=== PATIENT | male | born 1985 | race African-American/Black ===

== ENCOUNTER 2017-05-20 17:44 | Inpatient (IN) | payer OTHER ==
[~2017-05-20] VITALS: Ht 172.7 cm; Wt 55.6 kg
[~2017-05-20 17:44] MED LIST: FLUT1SPR9 NASAL
[2017-05-20 18:05] VITALS: BP 125/90; PULSE 90; RESP 18; TEMP 98.2; O2SAT 98
[2017-05-20 19:18] LABS: AUTOMATED NEUTROPHIL # 3.3 TH/MM3 (1.8-7.7); BASOPHIL # 0.1 TH/MM3 (0-0.2); BASOPHIL % 0.9 % (0.0-2.0); EOSINOPHIL # 0.2 TH/MM3 (0-0.4); EOSINOPHIL % 3.6 % (0.0-4.0); HEMATOCRIT 45.4 % (39.0-51.0); HEMO FLAGS DIFF FINAL; LYMPH % 36.8 % (9.0-44.0); LYMPHOCYTE # 2.4 TH/MM3 (1.0-4.8); MEAN CELL VOLUME 95.2 FL (80.0-100.0); MEAN CORPUSCULAR HEMOGLOBIN 32.2 PG (27.0-34.0); MEAN CORPUSCULAR HGB CONC 33.8 % (32.0-36.0); MONO % 7.8 % (0.0-8.0); NEUT % 50.9 % (16.0-70.0); PLATELET COUNT 202 TH/MM3 (150-450); RED BLOOD COUNT 4.77 MIL/MM3 (4.50-5.90); RED CELL DISTRIBUTION WIDTH 14.5 % (11.6-17.2); WHITE BLOOD COUNT 6.6 TH/MM3 (4.0-11.0)
[2017-05-20 19:32] LABS: ANION GAP 7 MEQ/L (5-15); BICARBONATE 28.2 MEQ/L (21.0-32.0); BLOOD UREA NITROGEN 16 MG/DL (7-18); CHLORIDE 105 MEQ/L (98-107); GLOMERULAR FILTRATION RATE 74 ML/MIN (>89); POTASSIUM 3.8 MEQ/L (3.5-5.1); SODIUM (NA) 140 MEQ/L (136-145)
[2017-05-20 19:33] LABS: ALT (GPT) 22 U/L (12-78); AST (GOT) 20 U/L (15-37)
[2017-05-20 19:35] LABS: ALKALINE PHOSPHATASE 97 U/L (45-117); TOTAL BILIRUBIN ADULT 1.1 MG/DL (0.2-1.0)
[2017-05-20 19:37] LABS: ALCOHOL LESS THAN 3 MG/DL (0-5)
[2017-05-20 19:41] LABS: ACETAMINOPHEN LESS THAN 2.0 MCG/ML (10.0-30.0)
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
[2017-05-20 21:27] VITALS: BP 116/77; PULSE 78; RESP 18; O2SAT 99
[2017-05-21 06:36] VITALS: BP 98/52; PULSE 73; RESP 16; O2SAT 99
[2017-05-21 10:45] VITALS: BP 114/69; PULSE 79; RESP 12
[2017-05-21 18:16] VITALS: BP 113/75; PULSE 67; RESP 16; O2SAT 98
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
[2017-05-21 22:01] VITALS: BP 111/59; PULSE 72; RESP 18; O2SAT 97
[2017-05-22 02:00] VITALS: BP 95/58; PULSE 70; PULSE 98; RESP 17; O2SAT 70; O2SAT 98
[2017-05-22 06:10] VITALS: BP 102/56; PULSE 71; RESP 18; O2SAT 98
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
[2017-05-22] MEDS ORDERED: LORazepam 1 MG TAB PO PRN (12:30)
[2017-05-22] MEDS ORDERED: diphenhydrAMINE HCL 50 MG CAP PO PRN (12:30)
[2017-05-22] MEDS ORDERED: ALUMINUM/MAGNESIUM/SIMETH 30 ML CUP PO PRN (12:30)
[2017-05-22] MEDS ORDERED: diphenhydrAMINE HCL 50 MG/ML VIAL IM PRN (12:30)
[2017-05-22] MEDS ORDERED: MAGNESIUM HYDROXIDE SUSP 30 ML CUP PO PRN (12:30)
[2017-05-22] MEDS ORDERED: LORazepam 2 MG/ML VIAL IM PRN (12:30)
[2017-05-22] MEDS ORDERED: ACETAMINOPHEN 325 MG TAB PO PRN (12:30)
[2017-05-22] MEDS ORDERED: HALOPERIDOL LACTATE 5 MG/ML AMP ONE (14:32)
[2017-05-22] MEDS ORDERED: LORazepam 2 MG/ML VIAL IM STA (15:04)
[2017-05-22] MEDS ORDERED: HALOPERIDOL LACTATE 5 MG/ML AMP IM ONE (15:15)
[2017-05-23 10:48] LABS: AUTOMATED NEUTROPHIL # 2.5 TH/MM3 (1.8-7.7); BASOPHIL % 0.8 % (0.0-2.0); EOSINOPHIL # 0.1 TH/MM3 (0-0.4); EOSINOPHIL % 2.7 % (0.0-4.0); HEMATOCRIT 44.4 % (39.0-51.0); HEMO FLAGS DIFF FINAL; LYMPH % 33.7 % (9.0-44.0); LYMPHOCYTE # 1.5 TH/MM3 (1.0-4.8); MEAN CELL VOLUME 95.3 FL (80.0-100.0); MEAN CORPUSCULAR HEMOGLOBIN 32.4 PG (27.0-34.0); MONO % 8.1 % (0.0-8.0); NEUT % 54.7 % (16.0-70.0); PLATELET COUNT 207 TH/MM3 (150-450); RED BLOOD COUNT 4.66 MIL/MM3 (4.50-5.90); RED CELL DISTRIBUTION WIDTH 14.6 % (11.6-17.2); WHITE BLOOD COUNT 4.6 TH/MM3 (4.0-11.0)
[2017-05-23 10:57] LABS: ANION GAP 8 MEQ/L (5-15); AST (GOT) 25 U/L (15-37); BICARBONATE 26.9 MEQ/L (21.0-32.0); BLOOD UREA NITROGEN 16 MG/DL (7-18); CHLORIDE 100 MEQ/L (98-107); GLOMERULAR FILTRATION RATE 75 ML/MIN (>89); POTASSIUM 3.6 MEQ/L (3.5-5.1); SODIUM (NA) 135 MEQ/L (136-145)
[2017-05-23 11:25] LABS: ALKALINE PHOSPHATASE 83 U/L (45-117); ALT (GPT) 20 U/L (12-78); HDL CHOLESTEROL 36.4 MG/DL (40.0-60.0); LDL CHOLESTEROL 74 MG/DL (0-99); TOTAL BILIRUBIN ADULT 1.7 MG/DL (0.2-1.0)
[2017-05-23] MEDS ORDERED: diphenhydrAMINE HCL 50 MG/ML VIAL IM PRN (12:00)
[2017-05-23] MEDS ORDERED: LORazepam 1 MG TAB PO PRN (12:00)
[2017-05-23] MEDS ORDERED: LORazepam 2 MG/ML VIAL IM PRN (12:00)
--- NOTE | 2017-05-23 14:01 | EKG ---
Date Performed: 05/23/2017 Time Performed: 08:11:35 PTAGE: 31 years EKG: Sinus rhythm BORDERLINE RIGHT AXIS DEVIATION ST ELEVATION CONSISTENT WITH INJURY, PERICARDITIS, OR EARLY REPOLARI ZATION ST DEVIATION AND MODERATE T-WAVE ABNORMALITY, CONSIDER ANTEROLATERAL ISCHEMIA ABNORMAL ECG NO PREVIOUS TRACING There is notable ST elevation, particularly in leads V3 and V4, but a lso in leads V5 and V6 with considered acute anterior myocardial injury. Clinical correlation is requ ired. DOCTOR: Tono Pratt Interpretating Date/Time 05/23/2017 14:00:48
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
[2017-05-23 16:22] VITALS: BP 111/61; PULSE 76; RESP 18; TEMP 98.5; O2SAT 97
[2017-05-23 17:03] LABS: HEMOGLOBIN A1b 1.7 %; HEMOGLOBIN Ao 85.6 %; HEMOGLOBIN LA1C 2.3 %; HEMOGLOBIN P3 3.6 %
--- NOTE | 2017-05-23 17:18 | HHI.PYPN ---
Subjective Remarks NOTE FOR 05/23/17 SAVED ON 05/24/17 - PLEASE REFER TO THAT NOTE. NEW NOTE WAS STARTED BY ERROR. Mental Status Examination Appearance: Appropriate Consciousness: Alert Orientation: Person, Place Motor Activity: Normal gait Speech: Rapid Language: Adequate Fund of Knowledge: Poor Attention and Concentration: Other (fair) Memory: Impaired Mood: Angry, Irritable Affect: Other (slight increase intensity decreased range) Thought Process & Associations: Loose associations, Tangential Thought Content: Bizarre thinking Hallucination Type: None (denies) Delusion Type: Paranoid Suicidal Ideation: No Suicidal Plan: No Suicidal Intention: No Homicidal Ideation: No Homicidal Plan: No Homicidal Intention: No Insight: Poor Judgment: Poor Results Labs Test 05/23/17 08:29 White Blood Count 4.6 TH/MM3 Red Blood Count 4.66 MIL/MM3 Hemoglobin 15.1 GM/DL Hematocrit 44.4 % Mean Corpuscular Volume 95.3 FL Mean Corpuscular Hemoglobin 32.4 PG Mean Corpuscular Hemoglobin Concent 34.0 % Red Cell Distribution Width 14.6 % Platelet Count 207 TH/MM3 Mean Platelet Volume 10.7 FL Neutrophils (%) (Auto) 54.7 % Lymphocytes (%) (Auto) 33.7 % Monocytes (%) (Auto) 8.1 % Eosinophils (%) (Auto) 2.7 % Basophils (%) (Auto) 0.8 % Neutrophils # (Auto) 2.5 TH/MM3 Lymphocytes # (Auto) 1.5 TH/MM3 Monocytes # (Auto) 0.4 TH/MM3 Eosinophils # (Auto) 0.1 TH/MM3 Basophils # (Auto) 0.0 TH/MM3 CBC Comment DIFF FINAL Differential Comment Blood Urea Nitrogen 16 MG/DL Creatinine 1.35 MG/DL Random Glucose 140 MG/DL Total Protein 6.5 GM/DL Albumin 3.6 GM/DL Calcium Level 9.1 MG/DL Alkaline Phosphatase 83 U/L Aspartate Amino Transf (AST/SGOT) 25 U/L Alanine Aminotransferase (ALT/SGPT) 20 U/L Total Bilirubin 1.7 MG/DL Sodium Level 135 MEQ/L Potassium Level 3.6 MEQ/L Chloride Level 100 MEQ/L Carbon Dioxide Level 26.9 MEQ/L Anion Gap 8 MEQ/L Estimat Glomerular Filtration Rate 75 ML/MIN Triglycerides Level 81 MG/DL Cholesterol Level 127 MG/DL LDL Cholesterol 74 MG/DL HDL Cholesterol 36.4 MG/DL Cholesterol/HDL Ratio 3.48 RATIO Vitamin B12 Level 408 PG/ML 25-Hydroxy Vitamin D Total 26.7 ng/ML Thyroid Stimulating Hormone 3rd Gen 0.796 uIU/ML Vitals/IOs Vital Signs Date Time Temp Pulse Resp B/P (MAP) Pulse Ox O2 Delivery O2 Flow Rate FiO2 05/23/17 16:22 98.5 76 18 111/61 (78) 97 05/22/17 06:10 Room Air Assessment & Plan Problem List: (1) Brief psychotic disorder ICD Codes: F23 - Brief psychotic disorder Assessment & Plan Estimated LOS: days Justification for Cont. Inpt. At risk for further decompensation if at lower level of care. Ilir Dasilva MD May 23, 2017 17:18
[2017-05-23] MEDS: OLANZapine 5 MG TAB PO SCH (21:00)
[2017-05-23] MEDS: diphenhydrAMINE HCL 50 MG CAP PO PRN (22:52)
[2017-05-24 05:42] VITALS: BP 97/60; PULSE 64; RESP 18; TEMP 97.6; O2SAT 98
[2017-05-24] MEDS: OLANZapine 5 MG TAB PO SCH (08:10)
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
[2017-05-24 17:03] VITALS: BP 104/60; PULSE 95; RESP 18; TEMP 98.8; O2SAT 100
--- NOTE | 2017-05-24 17:04 | HHI.PYPN ---
Subjective Remarks Patient seen for follow-up, chart reviewed. Patient found lying on hospital bed , irritable and superficially cooperative with interview. Discussion with nursing staff, patient guarded with taking medication, ate well, has not been aggressive. Patient questions why his mother is is trying to kill him..."use her senority" and states that he will likely return back to live with her. He reports sleeping well, eating and drinking well. Chief Complaint: Aggressivness toward mother, paranoid and persecutory delusions Review of Systems Except as stated in HPI: all other systems reviewed are Neg Mental Status Examination Appearance: Appropriate Consciousness: Alert Orientation: Person, Place Motor Activity: Normal gait Language: Adequate Fund of Knowledge: Poor Attention and Concentration: Other (fair) Memory: Impaired Mood: Irritable Affect: Irritable Thought Process & Associations: Linear Thought Content: Bizarre thinking, Other (perseverative on persecutary/ paranoid delusion) Hallucination Type: None (denies) Delusion Type: Paranoid, Other (persecutory delusions) Suicidal Ideation: No Suicidal Plan: No Suicidal Intention: No Homicidal Ideation: No Homicidal Plan: No Homicidal Intention: No Insight: Poor Judgment: Poor Results Vitals/IOs Vital Signs Date Time Temp Pulse Resp B/P (MAP) Pulse Ox O2 Delivery O2 Flow Rate FiO2 05/24/17 17:03 98.8 95 18 104/60 (75) 100 05/22/17 06:10 Room Air Assessment & Plan Problem List: (1) Brief psychotic disorder ICD Codes: F23 - Brief psychotic disorder Assessment & Plan Patient continues to endorse paranoid and persecutory delusions of his mother trying to kill him. Will increase olanzapine to 10mg AM/15mg PO HS for psychosis. Discharge planning in progress. Justification for Cont. Inpt. At risk for further decompensation if at lower level of care. Discharge Planning Patient to return back to mother's home once stable. Ilir Dasilva MD May 24, 2017 17:04
[2017-05-24] MEDS: OLANZapine 10 MG TAB PO SCH (20:09)
[2017-05-25 05:42] VITALS: BP 112/65; PULSE 80; RESP 16; TEMP 97.2; O2SAT 98
[2017-05-25] MEDS: OLANZapine 5 MG TAB PO SCH (08:14)
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
[2017-05-25 17:43] VITALS: BP 143/63; PULSE 89; RESP 17; TEMP 98.5; O2SAT 99
[2017-05-25] MEDS: OLANZapine 10 MG TAB PO SCH (20:22)
[2017-05-26 06:00] VITALS: BP 116/62; PULSE 72; RESP 16; TEMP 97.8; O2SAT 100
[2017-05-26] MEDS: OLANZapine 5 MG TAB PO SCH (07:49)
[2017-05-26 16:39] VITALS: BP 117/82; PULSE 69; RESP 17; TEMP 96.8; O2SAT 96
[2017-05-26] MEDS: OLANZapine 10 MG TAB PO SCH ×2 (20:29→20:48)
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
[2017-05-27 05:51] VITALS: BP 114/70; PULSE 71; RESP 16; TEMP 98.3; O2SAT 97
[2017-05-27] MEDS: OLANZapine 5 MG TAB PO SCH (09:00)
[2017-05-27 15:32] VITALS: BP 115/84; PULSE 88; RESP 18; TEMP 96.9; O2SAT 88
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
[2017-05-27] MEDS: OLANZapine 10 MG TAB PO SCH (20:36)
[2017-05-28 05:47] VITALS: BP 113/81; PULSE 71; RESP 18; TEMP 98.1; O2SAT 97
[2017-05-28] MEDS: OLANZapine 5 MG TAB PO SCH (09:00)
--- NOTE | 2017-05-28 13:46 | HHI.PYPN ---
Subjective Remarks Patient seen for follow-up, chart reviewed. Discussion with nursing staff reported the patient continues to refuse medications stating that it is against his buddhism. Patient had difficulty sleeping last evening. Patient found lying in hospital bed today but was cooperative in interview. Patient states that he does not want to take showers as he feels that it sexual harassment for him to get naked despite having him assured that he will be in the shower alone. Patient states that he is refusing medication because of nondenominational reasons. Patient continues to be noted to have some grandiosity, pressured speech & on his mother attempting to kill him or having him put in the hospital for alternative motives. Patient continues to state that he is planning to erna the hospital for $99 trillion for every day he spends away from his business. Chief Complaint: Aggressivness toward mother, paranoid and persecutory delusions Review of Systems Except as stated in HPI: all other systems reviewed are Neg Mental Status Examination Appearance: Appropriate Consciousness: Alert Orientation: Person, Place, Date/Time Motor Activity: Normal gait Speech: Pressured Language: Adequate Fund of Knowledge: Poor Attention and Concentration: Other (fair) Memory: Impaired Mood: Irritable Affect: Irritable Thought Process & Associations: Linear Thought Content: Bizarre thinking, Other (perseverative on persecutary/ paranoid delusion) Hallucination Type: None (denies) Delusion Type: Paranoid, Other (persecutory delusions) Suicidal Ideation: No Suicidal Plan: No Suicidal Intention: No Homicidal Ideation: No Homicidal Plan: No Homicidal Intention: No Insight: Poor Judgment: Poor Results Vitals/IOs Vital Signs Date Time Temp Pulse Resp B/P (MAP) Pulse Ox O2 Delivery O2 Flow Rate FiO2 05/28/17 05:47 98.1 71 18 113/81 (04) 97 Assessment & Plan Problem List: (1) Brief psychotic disorder ICD Codes: F23 - Brief psychotic disorder Assessment & Plan Patient continues to refuse medications and will likely need to present to mental health court for treatment over objection due to his continued symptoms. Patient will also be presented the [place] for retention. Continue to encourage patient to adhere to medication treatment and to maintain hygiene while on the unit. Discharge planning in progress Justification for Cont. Inpt. At risk for further decompensation if at lower level of care Discharge Planning Unclear with the patient may return back to his mother's residence due to his current symptoms but one psychiatrically stable this will begin be explored. Ilir Dasilva MD May 28, 2017 13:46
[2017-05-28 15:37] VITALS: BP 149/63; PULSE 92; RESP 18; TEMP 98.1; O2SAT 97
[2017-05-28] MEDS: OLANZapine 10 MG TAB PO SCH (21:00)
[2017-05-29 06:08] VITALS: BP 99/57; PULSE 73; RESP 17; TEMP 97.8; O2SAT 97
[2017-05-29] MEDS: OLANZapine 5 MG TAB PO SCH (09:00)
--- NOTE | 2017-05-29 15:55 | HHI.PYPN ---
Subjective Remarks Patient seen for follow-up, chart reviewed. Discussion whether she staff stated patient continues to refuse medications. Patient found lying in hospital bed, cooperative interview. Patient continues to be noted to be a perseverative on persecutory paranoid delusion of his mother trying to kill him. Patient also continues to endorse grandiose delusions of having rectal labels, appetite is being companies stating that he is losing "trillions" of dollars with every day he is here in the hospital. Patient also continues to state that he is willing to soon [facility] for having him admitted to the inpatient psychiatric unit involuntarily. Patient reminded that he will be presented to mental health court tomorrow to present petition for involuntary admission as well as treatment over objection. Chief Complaint: Aggressivness toward mother, paranoid and persecutory delusions Review of Systems Except as stated in HPI: all other systems reviewed are Neg Mental Status Examination Appearance: Appropriate Consciousness: Alert Orientation: Person, Place, Date/Time Motor Activity: Normal gait Speech: Pressured Language: Adequate Fund of Knowledge: Poor Attention and Concentration: Other (fair) Memory: Impaired Mood: Irritable Affect: Irritable Thought Process & Associations: Linear, Tangential (at times) Thought Content: Bizarre thinking, Other (perseverative on persecutary/ paranoid delusion) Hallucination Type: None (denies) Delusion Type: Paranoid, Other (persecutory delusions) Suicidal Ideation: No Suicidal Plan: No Suicidal Intention: No Homicidal Ideation: No Homicidal Plan: No Homicidal Intention: No Insight: Poor Judgment: Poor Results Vitals/IOs Vital Signs Date Time Temp Pulse Resp B/P (MAP) Pulse Ox O2 Delivery O2 Flow Rate FiO2 05/29/17 06:08 97.8 73 17 99/57 (11) 97 Assessment & Plan Problem List: (1) Brief psychotic disorder ICD Codes: F23 - Brief psychotic disorder Assessment & Plan Patient continues to refuse medications stated that is against his pentecost[employer] police although continues to be very paranoid surrounding his mother and continue with persecutory delusions as well as grandiose delusions. Patient continues to be at risk for harm to others due to his recent history and access to firearms. Patient will present to mental health court tomorrow for retention as well as treatment over objection. Continue current treatment. Discharge planning in progress Justification for Cont. Inpt. At risk for further decompensation if at lower level of care Discharge Planning Unclear whether patient will be able to return back to mother's residence. Patient continues to require psychiatric stabilization at this time Ilir Dasilva MD May 29, 2017 15:55
[2017-05-29 16:00] VITALS: BP 124/78; PULSE 101; RESP 18; O2SAT 96
[2017-05-29] MEDS: OLANZapine 10 MG TAB PO SCH (20:57)
[2017-05-30 06:10] VITALS: BP 111/60; PULSE 67; RESP 18; TEMP 98; O2SAT 99
[2017-05-30] MEDS: OLANZapine 5 MG TAB PO SCH (09:00)
[2017-05-30] MEDS ORDERED: HALOPERIDOL LACTATE 5 MG/ML AMP IM ONE (10:30)
[2017-05-30] MEDS ORDERED: LORazepam 2 MG/ML VIAL IM ONE (10:30)
[2017-05-30] MEDS ORDERED: OLANZapine IM 10 MG VIAL IM PRN (13:00)
--- NOTE | 2017-05-30 16:53 | HHI.PYPN ---
Subjective Remarks Patient seen for follow-up, chart reviewed. Patient was taken to mental health court for hearing on petition for involuntary admission and request for health care surrogate which recreation therapy aide granted both. Patient was upset with the outcome and attempted to elope and had grabbed an umbrella which patient was noted to be agitated and code maloney was called but patient was able to be de-escalated and brought back to the unit where he was put in the quiet room and given haldol 5mg IM and ativan 2mg IM. Chief Complaint: Aggressivness toward mother, paranoid and persecutory delusions Review of Systems Except as stated in HPI: all other systems reviewed are Neg Mental Status Examination Appearance: Appropriate Consciousness: Alert Orientation: Person, Place, Date/Time Motor Activity: Normal gait Speech: Pressured, Other (yelling using foul language) Language: Adequate Fund of Knowledge: Poor Attention and Concentration: Easily Distracted Memory: Impaired Mood: Angry, Irritable Affect: Irritable, Other (agitated) Thought Process & Associations: Linear, Tangential (at times) Thought Content: Bizarre thinking, Delusional, Other (perseverative on persecutary/paranoid delusion) Hallucination Type: None (denies) Delusion Type: Paranoid, Other (persecutory delusions) Suicidal Ideation: No Suicidal Plan: No Suicidal Intention: No Homicidal Ideation: No Homicidal Plan: No Homicidal Intention: No Insight: Poor Judgment: Poor Results Vitals/IOs Vital Signs Date Time Temp Pulse Resp B/P (MAP) Pulse Ox O2 Delivery O2 Flow Rate FiO2 05/30/17 06:10 98.0 67 18 111/60 (77) 99 Assessment & Plan Problem List: (1) 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 Patient to continue olanzapine 5mg PO BID and if refuses olanzapine 5mg IM BID for psychosis. Continue to monitor mood and behavior. Elopement precautions. Discharge planning in progress. Justification for Cont. Inpt. At risk for further decompensation if at lower level of care. Discharge Planning Unclear if patient can return back to [facility] once psychiatrically stable Ilir Dasilva MD May 30, 2017 16:53
[2017-05-30 18:02] VITALS: BP 104/77; PULSE 103; RESP 18; TEMP 98.1; O2SAT 96
[2017-05-30] MEDS: OLANZapine 10 MG TAB PO SCH (21:32)
[2017-05-31 06:23] VITALS: BP 116/69; PULSE 76; RESP 16; TEMP 97.8; O2SAT 99
[2017-05-31] MEDS: OLANZapine 5 MG TAB PO SCH (08:08)
[2017-05-31] MEDS: NICOTINE 21 MG/24 HR PATCH T-DERMAL SCH (11:00)
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
[2017-05-31 18:12] VITALS: BP 122/88; PULSE 102; RESP 17; O2SAT 98
[2017-05-31] MEDS: diphenhydrAMINE HCL 50 MG CAP PO PRN (20:56)
[2017-05-31] MEDS: OLANZapine 10 MG TAB PO SCH (20:57)
[2017-05-31] MEDS: REMOVE OLD NICODERM (NICOTINE) PATCH T-DERMAL SCH (21:00)
[2017-06-01 06:06] VITALS: BP 101/52; PULSE 83; RESP 16; TEMP 98.3; O2SAT 98
[2017-06-01] MEDS: OLANZapine 5 MG TAB PO SCH (08:44)
[2017-06-01] MEDS: NICOTINE 21 MG/24 HR PATCH T-DERMAL SCH (08:44)
--- NOTE | 2017-06-01 16:04 | HHI.PYPN ---
Subjective Remarks Patient was seen and case discussed with nursing. I had an extended conversation with the patient where he adamantly denies having any mental health history or symptoms. He is perseverative on this being the fault of his mother. He has poor insight into his admission and his behavior here and in his last court meeting. He later becomes angry and threatens to erna everybody for "99 quadrillion dollars." Compliant with medications Chief Complaint: Aggressivness toward mother, paranoid and persecutory delusions Mental Status Examination Appearance: Appropriate Consciousness: Alert Orientation: Person, Place, Date/Time Motor Activity: Normal gait Speech: Pressured Language: Adequate Fund of Knowledge: Poor Attention and Concentration: Adequate Memory: Impaired Mood: Angry Affect: Irritable, Blunt Thought Process & Associations: Tangential (at times) Thought Content: Delusional (continues with paranoid and persecutory) Hallucination Type: None (denies) Delusion Type: Paranoid, Other (persecutory delusions) Suicidal Ideation: No Suicidal Plan: No Suicidal Intention: No Homicidal Ideation: No Homicidal Plan: No Homicidal Intention: No Insight: Poor Judgment: Poor Results Vitals/IOs Vital Signs Date Time Temp Pulse Resp B/P (MAP) Pulse Ox O2 Delivery O2 Flow Rate FiO2 06/01/17 06:06 98.3 83 16 101/52 (68) 98 Assessment & Plan Problem List: (1) Schizoaffective disorder ICD Codes: F25.9 - Schizoaffective disorder, unspecified Assessment & Plan Continue current treatment plan Justification for Cont. Inpt. Patient would decompensate in a less restrictive setting Problem Qualifiers (1) Schizoaffective disorder: Qualified Codes: F25.0 - Schizoaffective disorder, bipolar type Alfredo Canela DO Jun 01, 2017 16:04
[2017-06-01 17:47] VITALS: BP 127/89; PULSE 94; RESP 16; TEMP 97.7; O2SAT 98
[2017-06-01] MEDS: OLANZapine 10 MG TAB PO SCH (21:00)
[2017-06-01] MEDS: REMOVE OLD NICODERM (NICOTINE) PATCH T-DERMAL SCH (21:00)
[2017-06-02 05:44] VITALS: BP 115/61; PULSE 85; RESP 16; TEMP 97.7; O2SAT 98
[2017-06-02] MEDS: OLANZapine 5 MG TAB PO SCH (08:47)
[2017-06-02] MEDS: NICOTINE 21 MG/24 HR PATCH T-DERMAL SCH (08:48)
--- NOTE | 2017-06-02 15:08 | HHI.PYPN ---
Subjective Remarks Patient was seen and case discussed with nursing. Patient has not needed any ETO's or restraints. He has not had any outbursts. He remains with an angry, irritable affect and bizarre fixed delusions concerning various circumstances. Patient is focused on his company and to watch his YouTube videos. We watched the videos and patient is showing off his gun collection. Chief Complaint: Aggressivness toward mother, paranoid and persecutory delusions Mental Status Examination Appearance: Appropriate Consciousness: Alert Orientation: Person, Place, Date/Time Motor Activity: Normal gait Speech: Pressured Language: Adequate Fund of Knowledge: Poor Attention and Concentration: Adequate Memory: Impaired Mood: Angry Affect: Irritable, Blunt Thought Process & Associations: Tangential (at times) Thought Content: Bizarre thinking, Delusional (continues with paranoid and persecutory) Hallucination Type: None (denies) Delusion Type: Paranoid, Other (persecutory delusions) Suicidal Ideation: No Suicidal Plan: No Suicidal Intention: No Homicidal Ideation: No Homicidal Plan: No Homicidal Intention: No Insight: Poor Judgment: Poor Results Vitals/IOs Vital Signs Date Time Temp Pulse Resp B/P (MAP) Pulse Ox O2 Delivery O2 Flow Rate FiO2 06/02/17 05:44 97.7 85 16 115/61 (79) 98 Assessment & Plan Problem List: (1) Schizoaffective disorder ICD Codes: F25.9 - Schizoaffective disorder, unspecified Assessment & Plan Continue to investigate that all firearms have been removed and patient has no access next week Justification for Cont. Inpt. Patient will decompensate in a less restrictive setting Problem Qualifiers (1) Schizoaffective disorder: Qualified Codes: F25.0 - Schizoaffective disorder, bipolar type Alfredo Canela DO Jun 02, 2017 15:08
[2017-06-02 17:13] VITALS: BP 111/80; PULSE 78; RESP 17; TEMP 98.7; O2SAT 96
[2017-06-02] MEDS: OLANZapine 10 MG TAB PO SCH (20:45)
[2017-06-02] MEDS: REMOVE OLD NICODERM (NICOTINE) PATCH T-DERMAL SCH (21:00)
[2017-06-03 06:07] VITALS: BP 118/64; PULSE 85; RESP 16; TEMP 97.2; O2SAT 97
[2017-06-03] MEDS: NICOTINE 21 MG/24 HR PATCH T-DERMAL SCH (08:17)
[2017-06-03] MEDS: OLANZapine 5 MG TAB PO SCH (08:17)
--- NOTE | 2017-06-03 17:51 | HHI.PYPN ---
Subjective Remarks Patient seen for follow-up, chart reviewed. Discussion with nursing staff reported that the patient continues to think that his mother is against him, med compliant. Patient was found in day room and able to engage in interview. Patient noted to be more engaging and pleasant during interview. He states having written a song which he shared during interview. He mentions that he spoke with his mother over the phone and states that they had "made up" which he apologizes for what had happened and felt that they needed some time to adjust to each other. He states that he told his mother that he is willing to do whatever she asks, take his medications and go to his appointments. He also states having felt frustrated because he wanted to be present in the court trial today for the custody of his children. He states wanting to go home and is agreeable to a family meeting prior to discharge as he plans on returning back to his mother's home to live. Chief Complaint: Aggressivness toward mother, paranoid and persecutory delusions Review of Systems Except as stated in HPI: all other systems reviewed are Neg Mental Status Examination Appearance: Appropriate Consciousness: Alert Orientation: Person, Place, Date/Time Motor Activity: Normal gait Speech: Unremarkable Language: Adequate Fund of Knowledge: Poor Attention and Concentration: Adequate Memory: Impaired Mood: Appropriate Affect: Appropriate Thought Process & Associations: Linear, Tangential (less so today) Thought Content: Delusional (continues with paranoid and persecutory but did not endorse today) Hallucination Type: None (denies) Delusion Type: Paranoid, Other (persecutory delusions) Suicidal Ideation: No Suicidal Plan: No Suicidal Intention: No Homicidal Ideation: No Homicidal Plan: No Homicidal Intention: No Insight: Poor (improving slightly) Judgment: Poor (improving slighlty) Results Vitals/IOs Vital Signs Date Time Temp Pulse Resp B/P (MAP) Pulse Ox O2 Delivery O2 Flow Rate FiO2 06/03/17 06:07 97.2 85 16 118/64 (82) 97 Assessment & Plan Problem List: (1) Schizoaffective disorder ICD Codes: F25.9 - Schizoaffective disorder, unspecified Assessment & Plan Patient continues to have paranoid and persecutory delusions but less so today. Will set up a family meeting prior to discharge to assess possibility of safe discharge of patient to return back home. Continue current treatment. Discharge planning in progress. Justification for Cont. Inpt. At risk for decompensation if at lower level of care. Discharge Planning Possible that patient may return home once psychiatrically stable. Problem Qualifiers (1) Schizoaffective disorder: Qualified Codes: F25.0 - Schizoaffective disorder, bipolar type Ilir Dasilva MD Jun 03, 2017 17:51
[2017-06-03 18:00] VITALS: BP 117/74; PULSE 91; RESP 16; TEMP 98.4; O2SAT 98
[2017-06-03] MEDS: REMOVE OLD NICODERM (NICOTINE) PATCH T-DERMAL SCH (20:27)
[2017-06-03] MEDS: OLANZapine 10 MG TAB PO SCH (20:27)
[2017-06-04 06:02] VITALS: BP 95/69; PULSE 80; RESP 17; TEMP 97.3; O2SAT 96
[2017-06-04] MEDS: OLANZapine 5 MG TAB PO SCH (08:21)
[2017-06-04] MEDS: NICOTINE 21 MG/24 HR PATCH T-DERMAL SCH (08:22)
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
[2017-06-04 15:53] VITALS: BP 116/57; PULSE 86; RESP 18; TEMP 98; O2SAT 98
[2017-06-04] MEDS: REMOVE OLD NICODERM (NICOTINE) PATCH T-DERMAL SCH (20:50)
[2017-06-04] MEDS: OLANZapine 10 MG TAB PO SCH (20:50)
[2017-06-05 06:05] VITALS: BP 95/50; PULSE 76; RESP 16; TEMP 97.3; O2SAT 99
[2017-06-05] MEDS: NICOTINE 21 MG/24 HR PATCH T-DERMAL SCH (07:48)
[2017-06-05] MEDS: OLANZapine 5 MG TAB PO SCH (07:48)
[2017-06-05] MEDS: ARIPiprazole 5 MG TAB PO SCH (07:48)
--- NOTE | 2017-06-05 16:47 | HHI.PYPN ---
Subjective Chief Complaint: Aggressivness toward mother, paranoid and persecutory delusions Remarks Patient seen for follow-up, chart reviewed. Patient found lying on hospital bed , noted to be sleepy but able to wake up for interview. Patient states that he is feeling "alright" and agrees to continue treatment as well as having [facility] upon discharge. He also agrees to continue with outpatient follow up when discharged. Patient was made aware that his firearms were removed from the home which he acknowledged. Meeting was held with patient, his mother and treatment team which these points were reviewed and everyone was in agreement with. Patient was noted to be affectionate with mother during interview. Review of Systems Except as stated in HPI: all other systems reviewed are Neg Mental Status Examination Appearance: Appropriate Consciousness: Alert Orientation: Person, Place, Date/Time Motor Activity: Normal gait Speech: Unremarkable Language: Adequate Fund of Knowledge: Inadequate, Poor Attention and Concentration: Adequate Memory: Impaired Mood: Appropriate Affect: Appropriate Thought Process & Associations: Linear, Tangential (less today) Thought Content: Delusional (less so today) Hallucination Type: None (denies) Delusion Type: Paranoid (less so today), Other (persecutory delusions less so today) Suicidal Ideation: No Suicidal Plan: No Suicidal Intention: No Homicidal Ideation: No Homicidal Plan: No Homicidal Intention: No Insight: Poor (improving slightly) Judgment: Poor (improving slighlty) Results Vitals/IOs Vital Signs Date Time Temp Pulse Resp B/P (MAP) Pulse Ox O2 Delivery O2 Flow Rate FiO2 06/05/17 06:05 97.3 76 16 95/50 (65) 99 Assessment & Plan Problem List: (1) Schizoaffective disorder ICD Codes: F25.9 - Schizoaffective disorder, unspecified Assessment & Plan Patient noted to have less paranoid and persecutory delusions. Meeting with his mother went well with everyone in agreement with plan. Patient to continue current treatment with plan for [facility] (Michael Aranda) on day of discharge. Discharge planning in progress. Justification for Cont. Inpt. At risk for decompensation if at lower level of care. Discharge Planning Patient to return back to his mother's home after psychiatrically stable. Problem Qualifiers (1) Schizoaffective disorder: Qualified Codes: F25.0 - Schizoaffective disorder, bipolar type Ilir Dasilva MD Jun 05, 2017 16:47
[2017-06-05 17:00] VITALS: BP 122/72; PULSE 105; RESP 18; TEMP 98.5; O2SAT 99
[2017-06-05] MEDS: REMOVE OLD NICODERM (NICOTINE) PATCH T-DERMAL SCH (20:42)
[2017-06-05] MEDS: OLANZapine 10 MG TAB PO SCH (20:42)
[2017-06-06 05:58] VITALS: BP 101/56; PULSE 75; RESP 18; TEMP 97.7; O2SAT 100
[2017-06-06] MEDS: ARIPiprazole 5 MG TAB PO SCH (08:31)
[2017-06-06] MEDS: NICOTINE 21 MG/24 HR PATCH T-DERMAL SCH (08:31)
[2017-06-06] MEDS: OLANZapine 5 MG TAB PO SCH (08:31)
--- NOTE | 2017-06-06 12:23 | HHI.PYPN ---
Subjective Chief Complaint: Aggressivness toward mother, paranoid and persecutory delusions Remarks Patient seen for follow-up, chart reviewed. Mental Status Examination Appearance: Appropriate Consciousness: Alert Orientation: Person, Place, Date/Time Motor Activity: Normal gait Speech: Unremarkable Language: Adequate Fund of Knowledge: Inadequate, Poor Attention and Concentration: Adequate Memory: Impaired Mood: Appropriate Affect: Appropriate Thought Process & Associations: Linear, Tangential (less today) Thought Content: Delusional (less so today) Hallucination Type: None (denies) Delusion Type: Paranoid (less so today), Other (persecutory delusions less so today) Suicidal Ideation: No Suicidal Plan: No Suicidal Intention: No Homicidal Ideation: No Homicidal Plan: No Homicidal Intention: No Insight: Poor (improving slightly) Judgment: Poor (improving slighlty) Results Vitals/IOs Vital Signs Date Time Temp Pulse Resp B/P (MAP) Pulse Ox O2 Delivery O2 Flow Rate FiO2 06/06/17 05:58 97.7 75 18 101/56 (71) 100 Assessment & Plan Problem List: (1) Schizoaffective disorder ICD Codes: F25.9 - Schizoaffective disorder, unspecified Assessment & Plan Estimated LOS: days Problem Qualifiers (1) Schizoaffective disorder: Qualified Codes: F25.0 - Schizoaffective disorder, bipolar type Ilir Dasilva MD Jun 06, 2017 12:23
--- NOTE | 2017-06-06 13:02 | HHI.PYPN ---
Subjective Chief Complaint: Aggressivness toward mother, paranoid and persecutory delusions Remarks Patient seen for follow-up, chart review. Patient found lying in hospital bed, cooperative. Patient states they say him sleepy due to side effects of medications. Patient denies any physical plans at this time. Patient states that he slept well and tolerating medications okay, eating and drinking well, mood being "decent". Patient continues to agree with treatment plan for tomorrow as well as discharged back to her his mother's home. Review of Systems Except as stated in HPI: all other systems reviewed are Neg Mental Status Examination Appearance: Appropriate Consciousness: Alert Orientation: Person, Place, Date/Time Motor Activity: Normal gait Speech: Unremarkable Language: Adequate Fund of Knowledge: Inadequate Attention and Concentration: Adequate Memory: Unremarkable Mood: Appropriate Affect: Appropriate Thought Process & Associations: Goal directed, Linear Thought Content: Delusional (decrease significantly) Hallucination Type: None (denies) Delusion Type: Paranoid (decreased significantly), Other (persecutory delusions less so today) Suicidal Ideation: No Suicidal Plan: No Suicidal Intention: No Homicidal Ideation: No Homicidal Plan: No Homicidal Intention: No Insight: Poor (improving slightly) Judgment: Impulsive Results Vitals/IOs Vital Signs Date Time Temp Pulse Resp B/P (MAP) Pulse Ox O2 Delivery O2 Flow Rate FiO2 06/06/17 05:58 97.7 75 18 101/56 (71) 100 Assessment & Plan Problem List: (1) Schizoaffective disorder ICD Codes: F25.9 - Schizoaffective disorder, unspecified Assessment & Plan Patient at this time continues to respond well to current treatment. Patient agreeable to Abilify maintain and 400 mg IM upon discharge as well as continue outpatient care for continuity and medications. Patient denies any mood or psychotic symptoms, delusions have decreased significantly and is agreeable to returning back to mother's home which at this time she feels safe to have him home after family meeting yesterday. Discharge planning in progress Justification for Cont. Inpt. At risk for further decompensation if at lower level of care Discharge Planning Patient to discharge back to mother's home. Problem Qualifiers (1) Schizoaffective disorder: Qualified Codes: F25.0 - Schizoaffective disorder, bipolar type Ilir Dasilva MD Jun 06, 2017 13:02
[2017-06-06 18:07] VITALS: BP 106/59; PULSE 103; RESP 18; TEMP 98.5; O2SAT 99
[2017-06-06] MEDS: OLANZapine 10 MG TAB PO SCH (20:41)
[2017-06-06] MEDS: REMOVE OLD NICODERM (NICOTINE) PATCH T-DERMAL SCH (20:41)
[2017-06-07 05:50] VITALS: BP 119/75; PULSE 84; RESP 18; TEMP 97.6; O2SAT 99
[2017-06-07] MEDS: NICOTINE 21 MG/24 HR PATCH T-DERMAL SCH (08:45)
[2017-06-07] MEDS: ARIPiprazole 5 MG TAB PO SCH (08:45)
[2017-06-07] MEDS: OLANZapine 5 MG TAB PO SCH (08:45)
[2017-06-07] MEDS ORDERED: ABILIFY MAINTENA 400 MG IM ONE (09:00)
[2017-06-07] MEDS ORDERED: ARIP400I IM (11:30)
[2017-06-07] MEDS ORDERED: OLAN5TAB PO (11:30)
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
--- NOTE | 2017-06-09 17:24 | HHI.PR ---
Addendum to Inpatient Note Addendum Reason: Additional Documentation Additional Information Received call as doc consumer affairs director from chief librarian circulation department with [facility] re: Zyprexa Rx from Dr. Dasilva. I read pharmacist the 4-day Zyprexa taper verbatim as ordered by Dr. Dasilva on discharge and instructed her to fill quantity sufficient for this taper. Raleigh Reagan MD Jun 09, 2017 17:24
== END 2017-06-07 17:15 | disposition home or self-care (01) | DRG 885 ==
LOC: NEDAMB 17:44 → NEDA 05-22 12:20 → H270 05-22 13:56
PROVIDERS: ADMIT Student in an Organized Health Care Education/Training Program; ATTEND Student in an Organized Health Care Education/Training Program
DX: F25.0 Schizoaffective disorder, bipolar type (principal); F91.3 Oppositional defiant disorder; F90.9 Attention-deficit hyperactivity disorder, unspecified type; J45.909 Unspecified asthma, uncomplicated; Z72.0 Tobacco use; K59.00 Constipation, unspecified
CPT/HCPCS: 80053; 80061; 80307; 82306; 82607; 83036; 84443; 85025; 93005; J1630; J2060; Q0163